=== PATIENT | male | born 2000 | race Caucasian/White ===

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

== ENCOUNTER 2024-02-20 21:18 | Emergency (ER) | payer BC, OTHER ==
[2024-02-20 21:33] VITALS: TEMP 98.4
--- NOTE | 2024-02-20 21:56 | ED ---
Fall HPI - General Chief Complaint: Fall Stated Complaint: fall-head injury Time Seen by Provider: 02/20/24 21:38 Source: patient, family Mode of arrival: ambulatory - History of Present Illness Initial Comments: 23-year-old male presenting to the ED with a chief complaint of fall injury. Patient reports that he was collecting firewood. States that there appeared to be "nice, branches", at the top of the history which he climbed. Reports that he was standing at approximately 8 to 10 feet. States that the branch he was standing on snapped causing him to fall 8 to 10 feet landing on his back and hitting the back of his head on the ground. States following, the branch which broke landed on his forehead. Denies LOC. Reports mild headache however denies any other pain. Denies any other injuries at this time. No other complaints. - Related Data Home Medications Medication Instructions Recorded Confirmed Kelp 1 tab PO DAILY 02/25/19 02/25/19 hydrOXYzine HCL [Atarax] 10 mg PO DAILY 02/25/19 02/25/19 Allergies Allergy/AdvReac Type Severity Reaction Status Date / Time azithromycin AdvReac Nausea & Verified 02/20/24 21:27 Vomiting Review of Systems ROS Statement: Those systems with pertinent positive or pertinent negative responses have been documented in the HPI. ROS Other: All systems not noted in ROS Statement are negative. Past Medical History Past Medical History: Asthma, Supraventricular Tachycardia (SVT), Thyroid Disorder Additional Past Medical History / Comment(s): Chronic abd pain for 8-9 months. History of Any Multi-Drug Resistant Organisms: None Reported Past Surgical History: Ear Surgery, Hernia Repair Additional Past Surgical History / Comment(s): testicular surgery Past Psychological History: Anxiety Smoking Status: Current every day smoker Past Alcohol Use History: Rare Past Drug Use History: Marijuana General Exam Limitations: no limitations General appearance: alert, in no apparent distress Head exam: Present: other (No felipe signs or raccoon's eyes. Hematoma on patient's forehead.) Eye exam: Present: PERRL, EOMI Neck exam: Present: normal inspection Respiratory exam: Present: normal lung sounds bilaterally Cardiovascular Exam: Present: regular rate GI/Abdominal exam: Present: soft Extremities exam: Present: other (Full active range of motion of bilateral upper and lower extremities.) Back exam: Present: other (No midline spinal tenderness to palpation.) Neurological exam: Present: alert, oriented X3 Skin exam: Present: warm, dry Course Vital Signs 02/20/24 21:22 Temperature 98.4 F Pulse Rate 63 Respiratory 18 Rate Blood Pressure 119/75 O2 Sat by Pulse 99 Oximetry Medical Decision Making - Medical Decision Making Was pt. sent in by a medical professional or institution (, SAND[facility], [employer] SET UP OPERATOR, urgent care, hospital, or senior care...) When possible be specific @ -No Did you speak to anyone other than the patient for history (EMS, parent, family, police, friend...)? What history was obtained from this source @ -No Did you review nursing and triage notes (agree or disagree)? Why? @ -I reviewed and agree with nursing and triage notes Were old charts reviewed (outside hosp., previous admission, EMS record, old EKG, old radiological studies, urgent care reports/EKG's, senior care records)? Report findings @ -No old charts were reviewed Differential Diagnosis (chest pain, altered mental status, abdominal pain women, abdominal pain men, vaginal bleeding, weakness, fever, dyspnea, syncope, headache, dizziness, GI bleed, back pain, seizure, CVA, palpatations, mental health, musculoskeletal)? @ -Differential Musculoskeletal Muscular strain, contusion, ligament sprain, fracture, arthritis, septic arthritis, bursitis, cellulitis, muscle spasm, nerve compression, DVT, arterial occlusion, herpes zoster, electrolyte abnormality, tumor.... This is not meant to be in all inclusive list EKG interpreted by me (3pts min.). @ -None X-rays interpreted by me (1pt min.). @ -None done CT interpreted by me (1pt min.). @ -CT brain and cervical spine interpreted by me which revealed no evidence of acute finding. U/S interpreted by me (1pt. min.). @ -None done What testing was considered but not performed or refused? (CT, X-rays, U/S, labs)? Why? @ -None What meds were considered but not given or refused? Why? @ -None Did you discuss the management of the patient with other professionals (professionals i.e. , SANDY, [employer] SET UP OPERATOR, lab, RT, psych nurse, marriage and family social worker, corporate lawyer, teacher, police liaison officer, case advocate)? Give summary @ -No Was smoking cessation discussed for >3mins.? @ -No Was critical care preformed (if so, how long)? @ -No Were there social determinants of health that impacted care today? How? (Homelessness, low income, unemployed, alcoholism, drug addiction, transportation, low edu. Level, literacy, decrease access to med. care, intermediate, rehab)? @ -No Was there de-escalation of care discussed even if they declined (Discuss DNR or withdrawal of care, Hospice)? DNR status @ -No What co-morbidities impacted this encounter? (DM, HTN, Smoking, COPD, CAD, Cancer, CVA, ARF, Chemo, Hep., AIDS, mental health diagnosis, sleep apnea, morbid obesity)? @ -None Was patient admitted / discharged? Hospital course, mention meds given and route, prescriptions, significant lab abnormalities, going to OR and other pertinent info. @ -Discharge 23-year-old male presented to the ED status post fall. Patient was in a tree approximately 8 to 10 feet high when the branch she was standing on broke causing him to fall landing primarily on his back and hitting the back of his head. There is no LOC at this time. The branch which broke and then landed on his forehead. On examination no felipe signs or raccoon's eyes. There is a hematoma to his forehead. No midline spinal tenderness to palpation. Full active range of motion of bilateral upper and lower extremities. Has no complaints of pain at this time. CT brain cervical spine revealed no evidence of acute finding. Discharged home in stable condition. Discussed concussion precautions. Discussed return precautions as well and patient verbalized agreement. Undiagnosed new problem with uncertain prognosis? @ -No Drug Therapy requiring intensive monitoring for toxicity (Heparin, Nitro, Insulin, Cardizem)? @ -No Were any procedures done? @ -No Diagnosis/symptom? @ -Status post fall, concussion Acute, or Chronic, or Acute on Chronic? @ -Acute Uncomplicated (without systemic symptoms) or Complicated (systemic symptoms)? @ -Uncomplicated Side effects of treatment? @ -No Exacerbation, Progression, or Severe Exacerbation? @ -No Poses a threat to life or bodily function? How? (Chest pain, USA, CT, pneumonia, PE, COPD, DKA, ARF, appy, cholecystitis, CVA, Diverticulitis, Homicidal, Suicidal, threat to staff... and all critical care pts) @ -No Disposition Clinical Impression: Concussion, Fall from tree, initial encounter Disposition: HOME SELF-CARE Condition: Poor Instructions (If sedation given, give patient instructions): Concussion (ED) Additional Instructions: Please return to the Emergency Department if symptoms worsen or any other concerns. Please follow-up with your primary care provider. Is patient prescribed a controlled substance at d/c from ED?: No Referrals: Salazar Maria DO [Primary Care Provider] - 1-2 days Time of Disposition: 23:00
[2024-02-20] MEDS: ACETAMINOPHEN TAB 500 MG TAB PO STA (22:22)
--- NOTE | 2024-02-20 22:35 | CT ---
EXAM: CT Head Without Intravenous Contrast CLINICAL HISTORY: ITS.REASON CT Reason: fall from tree 8-10 ft TECHNIQUE: Axial computed tomography images of the head/brain without intravenous contrast. CTDI is 45.2 mGy and DLP is 1017 mGy-cm. This CT exam was performed using one or more of the following dose reduction techniques: automated exposure control, adjustment of the mA and/or kV according to patient size, and/or use of iterative reconstruction technique. COMPARISON: No relevant prior studies available. FINDINGS: Brain: Unremarkable. No hemorrhage. No significant white matter disease. No edema. Ventricles: Unremarkable. No ventriculomegaly. Bones/joints: Unremarkable. No acute fracture. Soft tissues: Unremarkable. Sinuses: Unremarkable as visualized. No acute sinusitis. Mastoid air cells: Unremarkable as visualized. No mastoid effusion. IMPRESSION: Normal head/brain CT. EXAM: CT Cervical Spine Without Intravenous Contrast CLINICAL HISTORY: ITS.REASON CT Reason: fall from tree 8-10 ft TECHNIQUE: Axial computed tomography images of the cervical spine without intravenous contrast. CTDI is 10.4 mGy and DLP is 333.3 mGy-cm. This CT exam was performed using one or more of the following dose reduction techniques: automated exposure control, adjustment of the mA and/or kV according to patient size, and/or use of iterative reconstruction technique. COMPARISON: No relevant prior studies available. FINDINGS: Vertebrae: Unremarkable. No acute fracture. Discs/spinal canal/neural foramina: No acute findings. No spinal canal stenosis. Soft tissues: Unremarkable. IMPRESSION: Normal cervical spine CT.
[2024-02-20 23:24] VITALS: BP 105/69; PULSE 55; RESP 17
== END 2024-02-20 23:09 | disposition home or self-care (01) ==
LOC: EC 21:18
DX: S06.0X0A Concussion without loss of consciousness, initial encounter (principal); S00.83XA Contusion of other part of head, initial encounter; R40.2362 Coma scale, best motor response, obeys commands, at arrival to emergency department; R40.2142 Coma scale, eyes open, spontaneous, at arrival to emergency department; R40.2252 Coma scale, best verbal response, oriented, at arrival to emergency department; F17.200 Nicotine dependence, unspecified, uncomplicated; Z88.1 Allergy status to other antibiotic agents; W14.XXXA Fall from tree, initial encounter
CPT/HCPCS: 70450; 72125; 99284